=== PATIENT | male | born 1965 | race Caucasian/White ===

== ENCOUNTER 2019-04-03 05:11 | Inpatient (IN) ==
--- NOTE | 2019-04-01 14:36 | EKG Report ---
Test Performed on : 04/01/2019 2:22:09 PM Test Reason : PAT Blood Pressure : / mmHG Vent. Rate : 068 BPM Atrial Rate : 068 BPM P-R Int : 144 ms QRS Dur : 106 ms QT Int : 388 ms P-R-T Axes : 071 086 080 degrees QTc Int : 412 ms Normal sinus rhythm. Normal ECG No previous ECGs available Confirmed by Taty Velazquez MD ([id number]) on 04/06/2019 9:28:32 PM
[2019-04-01 14:43] LABS: HEMATOCRIT 35.5 % (42.0-52.0); HEMOGLOBIN 12.3 g/dL (14.0-18.0); MCH 35.7 PG (27-31); MCHC 34.6 g/dL (33-37); MCV 102.9 FL (81-99); MPV 8.5 FL (7.4-10.4); RBC 3.45 XMIL (4.7-6.1); RDW 13.9 % (11.5-14.5); WBC 6.86 X1000 (4.8-10.8)
[2019-04-01 15:01] LABS: AGAP 13; BUN 21 mg/dL (8-22); CALCIUM 10.3 mg/dL (8.8-10.2); CHLORIDE 100 mmol/L (98-107); COSMO 282; CREATININE 0.7 mg/dL (0.7-1.2); ESTIMATED GFR > 60; GLUCOSE 93 mg/dL (70-104); POTASSIUM 3.8 mmol/L (3.5-5.1); SODIUM 140 mmol/L (136-145); TCO2 27 mmol/L (25-35)
[2019-04-03] MEDS ORDERED: LR 1,000 ML ONE (06:01)
[2019-04-03] MEDS ORDERED: KEFZOL 1 GM/D5W 2 GM/100 ML IVPB ONE (06:01)
[2019-04-03] MEDS ORDERED: DIPRIVAN 1% ONE (06:36)
[2019-04-03] MEDS ORDERED: SENSORCAINE 0.25%/EPI 1:200,000 ONE (06:38)
[2019-04-03] MEDS ORDERED: NS 1,000 ML ONE ×2 (06:39→10:06)
[2019-04-03] MEDS ORDERED: KEFZOL ONE (06:39)
[2019-04-03] MEDS ORDERED: HEPARIN ONE (06:39)
[2019-04-03] MEDS ORDERED: PAPAVERINE ONE (06:47)
[2019-04-03] MEDS ORDERED: ZOFRAN ONE (07:28)
[2019-04-03] MEDS ORDERED: ROBINUL ONE ×2 (07:28→09:15)
[2019-04-03] MEDS ORDERED: EPHEDRINE ONE (07:28)
[2019-04-03] MEDS ORDERED: ZEMURON ONE (07:28)
[2019-04-03] MEDS ORDERED: XYLOCAINE-MPF 2% ONE (07:28)
[2019-04-03] MEDS ORDERED: DECADRON ONE (07:28)
[2019-04-03] MEDS ORDERED: QUELICIN (DOSE) ONE (07:28)
[2019-04-03] MEDS ORDERED: HEPARIN (DOSE) ONE ×2 (07:39→09:10)
[2019-04-03] MEDS ORDERED: FENTANYL ONE (09:13)
[2019-04-03] MEDS ORDERED: NEOSTIGMINE ONE (09:15)
[2019-04-03 09:44] LABS: URINE SOURCE CATH
[2019-04-03 09:54] LABS: BILIRUBIN URINE NEGATIVE (NEGATIVE); BLOOD URINE NEGATIVE (NEGATIVE); COLOR YELLOW; GLUCOSE URINE NEGATIVE (NEGATIVE); KETONE URINE NEGATIVE (NEGATIVE); LEUKOCYTES URINE NEGATIVE (NEGATIVE); NITRITE URINE NEGATIVE (NEGATIVE); PH URINE 6.5; PROTEIN URINE NEGATIVE (NEGATIVE); TURBIDITY URINE CLEAR (CLEAR); UR EPITHELIAL CELLS <10 /HPF (<10); URINE BACTERIA NEGATIVE /HPF; URINE RBC <10 /HPF (<10); URINE WBC <10 /HPF (<10); UROBILINOGEN URINE NORMAL (NORMAL)
--- NOTE | 2019-04-03 10:02 | OPERATIVE NOTE ---
PROCEDURE DATE: 04/03/2019 PROCEDURE PERFORMED: Right femoral popliteal in situ vein bypass. SURGEON: Chapin Kc MD. SYNTHETIC CHEMIST: FRANK Jalloh. 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 DESCRIPTION OF PROCEDURE: After satisfactory general endotracheal anesthesia, the right leg was prepped and draped in a sterile fashion. The foot was excluded. OpSites were placed on some wounds around the knee. We made a vertical incision in the right groin, dissected down to the common femoral, surrounded with an umbilical tape. The deep femoral surrounded with a large vessel loop. The superficial femoral surrounded with a large vessel loop. Some small crossing veins were ligated and divided. The greater saphenous vein was also identified and dissected out. It was marked on its anterior aspect. Total of 5000 units of heparin were given. The vein was just seen along the course of the medial aspect of the thigh. He had very little subcutaneous tissue, so the greater saphenous vein could be identified. We had marked the small branches coming off the vein. We then made a longitudinal incision in the distal medial thigh, dissected into the popliteal space, identified the popliteal artery. We isolated and surrounded the vessel loops proximally and distally. The vein was noted to be in the skin and subcutaneous tissue inferior to our incision. We turned our attention proximally again. We used a Satinsky clamp to clamp off the takeoff of the greater saphenous vein. We then amputated the vein. We had a small bulldog clamp on it proximally to keep it from bleeding. We then oversewed the stump of the saphenous vein at the femoral vein intersection with a 5-0 Prolene horizontal mattress stitch followed by a running stitch. We looked at the opening of the greater saphenous vein. No valves were identified. We then made an incision in the common femoral artery right at the bifurcation where the SFA was occluded. Extended it somewhat with Man scissors, used a 4-0 punch twice. We then spatulated the vein, and used a 5-0 Prolene stitch to sew the vein to the artery, and flow was established into the proximal vein, flow went down to the first valve. Hemostasis was satisfactory. We turned our attention to the distal medial thigh. We made a small incision in the artery to be certain we had flow, which we did. We then actually had a vein branch that was off the main vein that we identified, made a small venotomy and passed our LeMaitre valvulotome up to the proximal anastomosis. We opened the valvulotome and engaged the valves and pulled it out. We passed it up twice and had pulsatile flow at this point out the vein. We did go up a branch, so the branch seemed to be adequate and so I did not dissect out the major greater saphenous vein in the caudad aspect of the subcutaneous tissue since this branch seemed to be adequate to come to the popliteal artery. We then made our arteriotomy adequately about a centimeter or a little bit more. We then cut the vein to match the arteriotomy and under 2.5 loupe magnification using a 6-0 Prolene stitch we constructed the distal anastomosis between the vein and the popliteal artery. Just prior to finishing, we passed a 3 probe up the vein and it had good pulsatile flow. We passed it down into the distal popliteal and it had good back bleeding. We then finished the anastomosis and flow was established. Hemostasis was satisfactory. Once again, we used a branch off the major greater saphenous vein, and the valve at the greater saphenous vein remained competent and did not have any pulsatile flow into the greater saphenous vein caudad to our incision. A couple of small branches as I said had been marked preoperatively, and so we cut down on these branches and ligated with 2-0 silk free ties in order to stop any flow out the branches. We irrigated out both wounds with Kefzol-impregnated saline. We closed the subcutaneous tissue of the distal incision with interrupted 3-0 Polysorb pops. We closed the subcutaneous tissue of the proximal incision with interrupted 3-0 Polysorb pops. We then closed the skin at each incision with 4-0 Polysorb subcuticular stitch. Telfa and sterile OpSites were applied. He tolerated it well, was sent to the recovery room in satisfactory condition. Estimated blood loss 100 mL. cc: Chapin Kc MD
[2019-04-03] MEDS: DILAUDID ONE ×4 (10:13→10:27)
[2019-04-03] MEDS ORDERED: ZOFRAN IV PRN (11:08)
[2019-04-03] MEDS ORDERED: DILAUDID IV PRN (11:08)
[2019-04-03] MEDS: NS 1,000 ML IV SCH (11:10)
[2019-04-03] MEDS: KEFZOL 1 GM/D5W 1 GM/50 ML IVPB IV SCH ×2 (15:34→22:27)
[2019-04-03] MEDS: NORCO-10 PO PRN ×2 (15:34→20:37)
[2019-04-03] MEDS: PLAVIX PO SCH (15:35)
[2019-04-03] MEDS: VENTOLIN HFA INH SCH (19:59)
[2019-04-03] MEDS: NEURONTIN PO SCH (20:36)
[2019-04-03] MEDS ORDERED: ZOLOFT PO SCH (21:00)
[2019-04-04] MEDS: NS 1,000 ML IV SCH (01:19)
[2019-04-04] MEDS: VENTOLIN HFA INH SCH (08:21)
[2019-04-04] MEDS: PLAVIX PO SCH (08:35)
[2019-04-04] MEDS: NEURONTIN PO SCH (08:36)
[2019-04-04] MEDS ORDERED: PRINZIDE 20/12.5MG PO SCH (09:00)
[2019-04-04] MEDS ORDERED: SANTYL OINT TOP SCH (09:00)
[2019-04-04] MEDS ORDERED: PATIENT'S OWN MED PO SCH ×2 (09:00→21:00)
[2019-04-04] MEDS ORDERED: FISH OIL CONCENTRATE PO SCH (09:00)
[2019-04-04] MEDS ORDERED: TRICOR PO SCH (09:00)
[2019-04-04] MEDS ORDERED: ASPIRIN PO SCH (09:00)
[2019-04-04] MEDS ORDERED: NASONEX NASAL SPRAY NAS SCH (09:00)
--- NOTE | 2019-04-04 11:04 | GENERAL SURGERY PROGRESS NOTE ---
DATE: 04/04/2019 Mr. Dietz is postop day 1 after a right femoral popliteal in situ vein bypass. He is afebrile. His hemodynamics were good. His foot is warm. He has a palpable graft pulse. He has been ambulating. The plan will be to discharge later today if all continues well. He is back on his anti HIV medications. He is on aspirin and Plavix as well. cc: Chapin Kc MD
[2019-04-04 15:31] VITALS: BP 147/69
== END 2019-04-04 18:29 | disposition home or self-care (01) | DRG 253 ==
LOC: SURHOLD 05:11 → 4N 10:47
PROVIDERS: ADMIT Surgery; ATTEND Surgery

== ENCOUNTER 2019-04-16 08:13 | Day surgery (SDC) ==
[2019-04-16] MEDS ORDERED: XYLOCAINE-MPF 2% ONE (08:58)
[2019-04-16] MEDS ORDERED: ROBINUL ONE (08:58)
[2019-04-16] MEDS ORDERED: FENTANYL ONE (08:58)
[2019-04-16] MEDS ORDERED: DIPRIVAN 1% ONE (08:58)
[2019-04-16] MEDS ORDERED: SODIUM CHLORIDE 0.9% 10 ML ONE ×2 (09:02→12:39)
[2019-04-16 09:04] LABS: HEMATOCRIT 32.6 % (42.0-52.0); HEMOGLOBIN 11.4 g/dL (14.0-18.0); MCH 34.9 PG (27-31); MCV 99.7 FL (81-99); MPV 8.6 FL (7.4-10.4); RBC 3.27 XMIL (4.7-6.1); RDW 12.9 % (11.5-14.5); WBC 8.63 X1000 (4.8-10.8)
[2019-04-16] MEDS ORDERED: KEFZOL 1 GM/D5W 1 GM/50 ML IVPB ONE (09:07)
[2019-04-16] MEDS ORDERED: LR 1,000 ML ONE (09:07)
[2019-04-16] MEDS ORDERED: PAPAVERINE ONE (11:47)
[2019-04-16] MEDS ORDERED: NS 2,000 ML ONE (11:47)
[2019-04-16] MEDS ORDERED: HEPARIN ONE ×2 (11:47)
[2019-04-16] MEDS ORDERED: SENSORCAINE 0.25%/EPI 1:200,000 ONE (11:47)
[2019-04-16] MEDS ORDERED: KEFZOL ONE (11:47)
[2019-04-16] MEDS ORDERED: HEPARIN (DOSE) ONE (12:34)
[2019-04-16] MEDS ORDERED: NEO-SYNEPHRINE ONE ×2 (12:39→13:13)
[2019-04-16] MEDS ORDERED: DECADRON ONE (13:27)
[2019-04-16] MEDS ORDERED: ZOFRAN ONE (13:27)
[2019-04-16] MEDS ORDERED: NS 1,000 ML ONE (14:15)
[2019-04-16] MEDS: DILAUDID ONE ×4 (14:40→14:53)
[2019-04-16] MEDS ORDERED: ZOFRAN IV PRN (15:22)
[2019-04-16] MEDS: NS 1,000 ML IV SCH ×2 (16:00→22:44)
[2019-04-16] MEDS ORDERED: ELIQUIS PO ONE (17:44)
[2019-04-16] MEDS: PERCOCET-10 PO PRN ×2 (18:22→22:43)
--- NOTE | 2019-04-16 19:54 | OPERATIVE NOTE ---
PROCEDURE DATE: 04/16/2019 PROCEDURE: Thrombectomy of vein graft, right leg. SURGEON: Chapin Kc MD. PEDIATRIC ASSISTANT: Corrina. PREOPERATIVE DIAGNOSIS: Thrombosis, right leg vein graft. POSTOPERATIVE DIAGNOSIS: Thrombosis, right leg vein graft. DESCRIPTION OF PROCEDURE: Satisfactory general anesthesia was achieved. An LMA was used. The right leg was prepped and draped in a sterile fashion. OpSites were placed on his wounds of his knee and right calf area. We gave the patient 5000 units of heparin systemically, and then made a longitudinal incision over his vein graft, identified it. After the heparin had circulated for 5 minutes, we then did a small transverse graftotomy. We passed a 3 Catherine distally. It hung up, so we had to expose the distal medial calf wound and exposed the vein graft going down to the artery. We then could not pass the Catherine all the way through the anastomosis, so we made a transverse graftotomy in the popliteal space. We were then able to pass the Catherine through the anastomosis. We pulled back clot from that area, fresh clot. We pulled back clot that was existent throughout the length of the vein graft. We did get arterial backbleeding at this point. We passed probes, 2, 2.5, 3, 3.5, through the anastomosis without any difficulty and we got good backbleeding, so we clamped the distal vein graft off. I attempted to pass the Catherine proximally at this point, and we could get it through the anastomosis, but we never got any antegrade flow. I went ahead and closed the distal graftotomy with a 6-0 Prolene stitch under 2.5 loupe magnification. We closed the more proximal vein graftotomy as well, and we decided to open the proximal wound over the vein graft. We did a transverse graftotomy there and actually a longitudinal graftotomy, and we noticed a large fibrinous clot at the anastomosis, and this was why we could go through it with the Catherine, but we could not get any antegrade flow. After we removed it, we did have antegrade flow through the anastomosis. It admitted a 4 easily through the anastomosis. We then proceeded to close that graftotomy as well. At this point, we had a pulse. I did shoot an arteriogram at this point and some flow did hang up in the mid graft, so I did another graftotomy and retrieved some platelet debris. I had the nurse construction foreman get the blood pressure up to 120 systolic, and when we removed the platelet debris, then we had pulsatile flow throughout the vein graft. We finished. We closed that last graftotomy with a 6-0 Prolene stitch, and then we had all the graftotomies closed and the pulse noted within the vein graft. We then irrigated out the wounds and closed the wounds with 3-0 Polysorb stitches in the subcutaneous tissue, and then closed the skin with lb. Sterile dressings were applied. He tolerated it well. Was sent to the recovery room in satisfactory condition. cc: Chapin Kc MD
[2019-04-16] MEDS: VENTOLIN HFA INH SCH (20:10)
[2019-04-16] MEDS ORDERED: ZOLOFT PO SCH (21:00)
[2019-04-16] MEDS: NEURONTIN PO SCH (21:26)
[2019-04-16] MEDS: PERIDEX MT SCH (22:43)
[2019-04-17] MEDS: PERCOCET-10 PO PRN ×3 (06:11→14:32)
[2019-04-17] MEDS: NS 1,000 ML IV SCH (07:34)
[2019-04-17] MEDS: VENTOLIN HFA INH SCH (08:04)
[2019-04-17] MEDS ORDERED: NASONEX NASAL SPRAY NAS SCH (09:00)
[2019-04-17] MEDS ORDERED: FISH OIL CONCENTRATE PO SCH (09:00)
[2019-04-17] MEDS ORDERED: PLAVIX PO SCH (09:00)
[2019-04-17] MEDS ORDERED: TRICOR PO SCH (09:00)
[2019-04-17] MEDS ORDERED: PATIENT'S OWN MED PO SCH (09:00)
[2019-04-17] MEDS ORDERED: ASPIRIN PO SCH (09:00)
[2019-04-17] MEDS ORDERED: SANTYL OINT TOP SCH (09:00)
[2019-04-17] MEDS: PERIDEX MT SCH (09:46)
[2019-04-17] MEDS: NEURONTIN PO SCH (09:46)
[2019-04-17 16:42] VITALS: BP 112/56
--- NOTE | 2019-04-17 19:22 | GENERAL SURGERY PROGRESS NOTE ---
DATE: 04/17/2019 SUBJECTIVE: Mr. Dietz has flow in his vein graft. His wounds look fine. There were cleaned, treated with Betadine, and recovered. I will discharge him home. He has been on aspirin and Plavix at home. I will start him on Eliquis in order to decrease the risk of thrombosis again. We will use Eliquis at least temporarily. cc: Chapin Kc MD
== END 2019-04-17 17:31 | disposition home or self-care (01) ==
LOC: 4N 08:13 → OR 08:13
PROVIDERS: ATTEND Surgery

== ENCOUNTER 2019-06-17 10:50 | Inpatient (IN) ==
[2019-06-10 14:13] LABS: HEMATOCRIT 37.8 % (42.0-52.0); HEMOGLOBIN 12.9 g/dL (14.0-18.0); MCH 33.6 PG (27-31); MCHC 34.1 g/dL (33-37); MCV 98.4 FL (81-99); MPV 8.5 FL (7.4-10.4); RBC 3.84 XMIL (4.7-6.1); RDW 12.3 % (11.5-14.5); WBC 5.85 X1000 (4.8-10.8)
[2019-06-10 14:56] LABS: AGAP 11; BUN 12 mg/dL (8-22); CALCIUM 9.3 mg/dL (8.8-10.2); CHLORIDE 102 mmol/L (98-107); COSMO 277; CREATININE 0.7 mg/dL (0.7-1.2); ESTIMATED GFR > 60; GLUCOSE 92 mg/dL (70-104); POTASSIUM 4.1 mmol/L (3.5-5.1); SODIUM 139 mmol/L (136-145); TCO2 26 mmol/L (25-35)
[~2019-06-17 10:50] MED LIST: DIPRIVAN 1% ONE; FENTANYL ONE; ZOFRAN ONE
[2019-06-17] MEDS ORDERED: LR 1,000 ML ONE (11:23)
[2019-06-17] MEDS ORDERED: KEFZOL 1 GM/D5W 1 GM/50 ML IVPB ONE (11:23)
[2019-06-17] MEDS ORDERED: DIPRIVAN 1% ONE ×2 (11:35→12:16)
[2019-06-17] MEDS ORDERED: FENTANYL ONE ×2 (11:36→12:44)
[2019-06-17] MEDS ORDERED: SENSORCAINE 0.5%-EPI 1:200,000 ONE (11:52)
[2019-06-17] MEDS ORDERED: NS 2,000 ML ONE (11:53)
[2019-06-17] MEDS ORDERED: HEPARIN ONE ×2 (11:53)
[2019-06-17] MEDS ORDERED: KEFZOL ONE (11:53)
[2019-06-17] MEDS ORDERED: DILAUDID ONE (12:29)
[2019-06-17] MEDS ORDERED: HEPARIN (DOSE) ONE ×2 (12:52→13:07)
[2019-06-17 13:11] LABS: URINE SOURCE CATH
[2019-06-17 13:17] LABS: BILIRUBIN URINE NEGATIVE (NEGATIVE); BLOOD URINE NEGATIVE (NEGATIVE); COLOR YELLOW; GLUCOSE URINE NEGATIVE (NEGATIVE); KETONE URINE NEGATIVE (NEGATIVE); LEUKOCYTES URINE NEGATIVE (NEGATIVE); NITRITE URINE NEGATIVE (NEGATIVE); PROTEIN URINE NEGATIVE (NEGATIVE); SP GRAVITY URINE 1.016; TURBIDITY URINE CLEAR (CLEAR); UROBILINOGEN URINE NORMAL (NORMAL)
[2019-06-17 13:18] LABS: UR EPITHELIAL CELLS <10 /HPF (<10); URINE BACTERIA NEGATIVE /HPF; URINE RBC <10 /HPF (<10); URINE WBC <10 /HPF (<10)
[2019-06-17] MEDS ORDERED: EPHEDRINE ONE (14:56)
[2019-06-17] MEDS ORDERED: NS 1,000 ML ONE (16:10)
[2019-06-17] MEDS ORDERED: NORCO-10 ONE (16:35)
[2019-06-17] MEDS ORDERED: ZOFRAN IV PRN (16:42)
[2019-06-17] MEDS: DILAUDID IV PRN (17:39)
[2019-06-17] MEDS: NS 1,000 ML IV SCH (17:43)
--- NOTE | 2019-06-17 19:00 | OPERATIVE NOTE ---
PROCEDURE DATE: 06/17/2019 PREOPERATIVE DIAGNOSES: 1. Right superficial femoral artery occlusion. 2. Right in situ vein bypass thrombosis. 3. Nonhealing ulcers of the right knee and right ankle. 4. Human immunodeficiency virus positivity. POSTOPERATIVE DIAGNOSES: 1. Right superficial femoral artery occlusion. 2. Right in situ vein bypass thrombosis. 3. Nonhealing ulcers of the right knee and right ankle. 4. Human immunodeficiency virus positivity. PROCEDURES: Right femoral popliteal reverse greater saphenous vein bypass with a completion arteriogram. SURGEON: Chapin Kc MD. FISH HATCHERY MANAGER: DAVID May student. DESCRIPTION OF PROCEDURE: Satisfactory general endotracheal anesthesia was achieved. Both legs were prepped and draped in a sterile fashion. The feet were excluded. We began by harvesting the left greater saphenous vein from the groin down to below the knee. We harvested approximately 45 cm of vein. We gave the patient 7000 units of heparin. We clamped off the greater saphenous vein at its take-off and transected it there and over sewed the stump with a 5-0 Prolene stitch, first with a horizontal mattress then a running stitch. We then incised the skin along the medial aspect of the thigh and along the course of the greater saphenous vein. We left 2 bridges of skin. We mobilized the greater saphenous vein and ligated the branches as we went from proximal to distal. The major branch was ligated. We followed the vein down to just below the knee. We ligated it there and placed it in saline. We achieved satisfactory hemostasis with electrocautery and then the skin was closed from the proximal wound down to the distal wound with a 4-0 Polysorb subcuticular stitch. I prepared the vein on the back table by irrigating the distal end of the vein with a clip on the proximal end of the vein. Only 1 spot was leaking and we oversewed it with a 6-0 Prolene stitch. We marked the vein to prevent twisting it. We then left it in the saline. I then turned my attention to the proximal groin on the right and incised the skin, and carried our incision down to the common femoral artery. There were some lymph lymphadenopathy that we excised from over the top of the artery. We then exposed the common femoral as it came under the inguinal ligament and surrounded it with some umbilical tape. We dissected it out on both sides more distal to about the level the profunda takeoff, but no further than that. We made a longitudinal incision in the distal medial thigh in the area the old scar and dissected into the popliteal space and again dissected out the distal superficial femoral, proximal popliteal artery, surrounded it with an umbilical tape proximally and a vessel loop distally. We then passed the Dosick tunneler from distal to proximal and then passed our vein graft down the Dosick tunneler without twisting it in the appropriate orientation. We then clamped off the common femoral at the inguinal ligament and the distal common femoral was clamped off also with an angled DeBakey clamp. We then incised the artery, extended it with the Man scissors, used a 6 mm punch twice to make the hole big enough. We then cut the vein to match the arteriotomy and constructed this anastomosis under 2.5 loupe magnification using a 6-0 Prolene stitch. Upon completion of this we allowed flow and a good pulse though within the vein graft. I then turned my attention distally and we had already passed a probe through the old vein graft at the anastomosis and so we had back bleeding, but we knew we had back bleeding from the distal popliteal. We then clamped off the popliteal proximally and distally and incised the artery, we extended with the Man scissors right through the area the old anastomosis. We then cut the vein graft to the appropriate length and then with proximal occlusion we then constructed this anastomosis with a 6-0 Prolene stitch, again under 2.5 loupe magnification, just prior to finishing it we passed a probe distally. We got back bleeding. We flushed the vein graft and had good antegrade flow. We then finished the anastomosis and flow was established. A couple of extra stitches were used to the distal anastomosis to achieve complete hemostasis. Also, at the proximal anastomosis we used an additional stitch as well. I then shot a completion arteriogram, using a 19 butterfly in the vein graft and this showed good flow through the anastomosis into the artery. A 6-0 Prolene stitch was used at the puncture site for closure of the vein. We irrigated out both wounds with saline followed by a Kefzol impregnated saline. We closed the proximal incision with 3-0 Polysorb simple stitches in the subcutaneous tissue. Then, the skin was closed with a 4-0 Polysorb subcuticular stitch. Some Gel-Foam was placed on the distal anastomosis. We then closed the subcutaneous tissue of the distal wound with 3-0 Polysorb simple subcutaneous stitches and the skin was closed again with a 4-0 Polysorb subcuticular stitch. Sterile dressings were applied. Aces were wrapped around the thighs bilaterally to provide a little gentle pressure on the subcutaneous tissue. He tolerated it well. Estimated blood loss was 400 mL. He was sent to the recovery room in satisfactory condition. cc: Chapin Kc MD
[2019-06-17] MEDS: VENTOLIN HFA INH SCH (19:41)
[2019-06-17] MEDS: ZOLOFT PO SCH (20:32)
[2019-06-17] MEDS: KEFZOL 1 GM/D5W 1 GM/50 ML IVPB IV SCH (20:32)
[2019-06-17] MEDS: NEURONTIN PO SCH (20:32)
[2019-06-17] MEDS: NORCO-10 PO PRN (20:37)
[2019-06-18] MEDS: DILAUDID IV PRN ×5 (01:25→22:20)
[2019-06-18] MEDS: KEFZOL 1 GM/D5W 1 GM/50 ML IVPB IV SCH ×3 (03:30→19:55)
[2019-06-18] MEDS: NS 1,000 ML IV SCH ×2 (05:39→11:15)
[2019-06-18 06:09] LABS: BASO# 0.02 X1000 (0.0-0.2); BASO% 0.4 % (0.0-0.8); EOS# 0.06 X1000 (0.0-0.7); EOS% 1.2 % (0.0-10.0); HEMATOCRIT 28.3 % (42.0-52.0); HEMOGLOBIN 9.5 g/dL (14.0-18.0); LYMPH# 1.44 X1000 (1.2-3.4); LYMPH% 27.9 % (20.5-51.1); MCH 33.9 PG (27-31); MCHC 33.6 g/dL (33-37); MCV 101.1 FL (81-99); MONO# 0.56 X1000 (0.11-0.59); MONO% 10.8 % (1.7-9.3); MPV 8.7 FL (7.4-10.4); NEUT# 3.09 X1000 (1.4-6.5); NEUT% 59.7 % (42.2-75.2); PLT 166 X1000 (130-400); RDW 12.8 % (11.5-14.5); WBC 5.17 X1000 (4.8-10.8)
[2019-06-18 06:38] LABS: AGAP 14; BUN 8 mg/dL (8-22); CALCIUM 8.2 mg/dL (8.8-10.2); CHLORIDE 104 mmol/L (98-107); COSMO 283; CREATININE 0.6 mg/dL (0.7-1.2); ESTIMATED GFR > 60; GLUCOSE 126 mg/dL (70-104); POTASSIUM 3.7 mmol/L (3.5-5.1); SODIUM 142 mmol/L (136-145); TCO2 24 mmol/L (25-35)
[2019-06-18] MEDS: VENTOLIN HFA INH SCH ×2 (08:08→19:42)
[2019-06-18] MEDS: ASPIRIN PO SCH (09:30)
[2019-06-18] MEDS: TRICOR PO SCH (09:31)
[2019-06-18] MEDS: NEURONTIN PO SCH ×3 (09:31→19:55)
[2019-06-18] MEDS: FISH OIL CONCENTRATE PO SCH (09:31)
[2019-06-18] MEDS: PRINZIDE 20/12.5MG PO SCH (09:31)
[2019-06-18] MEDS: FLONASE NAS SCH (09:31)
[2019-06-18] MEDS: SANTYL OINT TOP SCH (09:31)
[2019-06-18] MEDS: LAMIVUDI PO SCH (11:14)
[2019-06-18] MEDS: ABACAVIR PO SCH (11:14)
[2019-06-18] MEDS: DOLUTEGRAVIR PO SCH (11:14)
[2019-06-18] MEDS ORDERED: FLU VACCINE IM ONE (11:24)
[2019-06-18] MEDS: ZOLOFT PO SCH (19:55)
[2019-06-19] MEDS: DILAUDID IV PRN ×3 (03:01→12:27)
[2019-06-19] MEDS: NS 1,000 ML IV SCH (03:01)
[2019-06-19] MEDS: KEFZOL 1 GM/D5W 1 GM/50 ML IVPB IV SCH ×2 (03:01→12:27)
[2019-06-19] MEDS: ZOLOFT PO SCH (07:23)
[2019-06-19] MEDS: NEURONTIN PO SCH ×3 (07:23→15:51)
[2019-06-19] MEDS: VENTOLIN HFA INH SCH (07:59)
[2019-06-19] MEDS: TRICOR PO SCH (09:11)
[2019-06-19] MEDS: PRINZIDE 20/12.5MG PO SCH (09:11)
[2019-06-19] MEDS: FISH OIL CONCENTRATE PO SCH (09:11)
[2019-06-19] MEDS: ASPIRIN PO SCH (09:11)
[2019-06-19] MEDS: FLONASE NAS SCH (09:11)
[2019-06-19] MEDS: LAMIVUDI PO SCH ×2 (09:12→09:14)
[2019-06-19] MEDS: DOLUTEGRAVIR PO SCH ×2 (09:12→09:14)
[2019-06-19] MEDS: ABACAVIR PO SCH ×2 (09:12→09:14)
[2019-06-19] MEDS: SANTYL OINT TOP SCH (09:25)
[2019-06-19] MEDS ORDERED: PLAVIX PO ONE (13:03)
[2019-06-19] MEDS: NORCO-10 PO PRN (15:54)
[2019-06-19 16:40] VITALS: BP 118/60
--- NOTE | 2019-06-19 20:40 | GENERAL SURGERY PROGRESS NOTE ---
DATE: 06/19/2019 SUBJECTIVE: Mr. Dietz is doing well. OBJECTIVE: He has a palpable dorsalis pedis pulse. His bandages are dry. ASSESSMENT AND PLAN: The plan is to discharge him. He is to go home on aspirin and Plavix. We will not use Eliquis for now. He will return to see me in the office in a week. He will continue with his local wound care for his wounds on his knee and heel. cc: Chapin Kc MD
--- NOTE | 2019-06-24 06:56 | DISCHARGE SUMMARY ---
ADMISSION DATE: 06/17/2019 DISCHARGE DATE: 06/19/2019 PRIMARY DISCHARGE DIAGNOSES: 1. Nonhealing ulcers right leg from the right superficial femoral artery occlusion. 2. Right in situ vein graft occlusion. 3. HIV positivity. HISTORY: This is a 53-year-old gentleman that we have tried to revascularize, but so far have failed. His wounds are not healing so we have admitted him for revision of his bypass of his femoral popliteal bypass. We have elected to take his left greater saphenous vein and reverse it as a conduit. Following his admission on the , he underwent that procedure. Postoperatively, he did generally well. On the , he had a palpable dorsalis pedis pulse. We had kept him on aspirin and Plavix postop. We will not renew his Eliquis. He will continue with local wound care to his knee which includes Santyl. This is for his heel as well. By 06/19, it was felt he could be discharged home on aspirin and Plavix with the continued local wound care. He will resume his other usual medications. cc: Chapin Kc MD
== END 2019-06-19 17:01 | disposition home or self-care (01) | DRG 253 ==
LOC: SURHOLD 10:50 → 4N 14:36
PROVIDERS: ADMIT Surgery; ATTEND Surgery